=== PATIENT | female | born 1985 | race Two or more races ===

== ENCOUNTER 2021-04-28 13:56 | Outpatient (CLI) | payer MEDICAID ==
[~2021-04-28] VITALS: Ht 170.2 cm; Wt 122.7 kg
[2021-04-28 14:36] VITALS: BP 135/76
== END 2021-04-28 17:48 | disposition home or self-care (01) ==
LOC: LDOP 13:56
PROVIDERS: ATTEND Obstetrics & Gynecology
DX: O09.523 Supervision of elderly multigravida, third trimester (principal); O36.8130 Decreased fetal movements, third trimester, not applicable or unspecified; Z3A.36 36 weeks gestation of pregnancy
CPT/HCPCS: 59025; 76819